=== PATIENT | female | born 1970 | race Two or more races ===

== ENCOUNTER 2023-01-22 10:24 | Outpatient (CLI) | payer OTHER | END 2023-01-22 10:36 | disposition home or self-care (01) | LOC: SONOGRAMA 10:24 | DX: N83.202 Unspecified ovarian cyst, left side (principal); R19.03 Right lower quadrant abdominal swelling, mass and lump; Z12.31 Encounter for screening mammogram for malignant neoplasm of breast; N64.4 Mastodynia ==